=== PATIENT | female | born 1990 | race Caucasian/White ===

== ENCOUNTER 2016-12-02 12:04 | Emergency (ER) | payer OTHER ==
[~2016-12-02] VITALS: Ht 162.6 cm; Wt 68.0 kg
[~2016-12-02 12:04] MED LIST: NAPROSYN500 MG PO; NOHOMEMEDICATIONS; NORCO 5-325 TA1 EACH PO; NORFLEX100 MG PO; QUINU10 PD
[2016-12-02 12:12] VITALS: BP 142/78
[2016-12-02] MEDS ORDERED: NAPROSYN500 MG PO (13:20)
[2016-12-02] MEDS ORDERED: HYDROCODONE-AP1 EAC6 PO (13:20)
== END 2016-12-02 13:23 | disposition home or self-care (01) ==
LOC: ER 12:04
DX: K08.89 Other specified disorders of teeth and supporting structures (principal); I10 Essential (primary) hypertension

== ENCOUNTER 2017-05-25 11:51 | Emergency (ER) | payer OTHER ==
[~2017-05-25] VITALS: Ht 162.6 cm; Wt 68.0 kg
[~2017-05-25 11:51] MED LIST changes: +FLEXERIL PO; +HYDROCODONE-AP1 EAC6 PO; +IBUPROFEN 800800 MG PO
[2017-05-25] MEDS ORDERED: HYDROCODONE-AP1 EAC6 PO (14:37)
[2017-05-25] MEDS ORDERED: PREDNISONE 20 M20 MG PO (14:41)
[2017-05-25] MEDS ORDERED: CYCLOBENZAPRINE5 MG PO (14:41)
[2017-05-25] MEDS ORDERED: MOBIC7.5 MG PO (14:41)
[2017-05-25 14:47] VITALS: BP 112/63
== END 2017-05-25 14:48 | disposition home or self-care (01) ==
LOC: ER 11:51
DX: M54.6 Pain in thoracic spine (principal); M54.5 Low back pain; I10 Essential (primary) hypertension; W11.XXXA Fall on and from ladder, initial encounter; Y93.89 Activity, other specified; Y92.89 Other specified places as the place of occurrence of the external cause; Y99.8 Other external cause status

== ENCOUNTER 2017-09-28 05:17 | Emergency (ER) | payer OTHER ==
[~2017-09-28] VITALS: Ht 162.6 cm; Wt 76.2 kg
[~2017-09-28 05:17] MED LIST changes: +CYCLOBENZAPRINE5 MG PO; +MOBIC7.5 MG PO; +PREDNISONE 20 M20 MG PO
[2017-09-28] MEDS ORDERED: OSELB75 PO (05:59)
[2017-09-28] MEDS ORDERED: NORCO 5-325 TA1 EACH PO (05:59)
== END 2017-09-28 06:22 | disposition home or self-care (01) ==
LOC: ER 05:17
DX: J11.1 Influenza due to unidentified influenza virus with other respiratory manifestations (principal); K03.81 Cracked tooth; I10 Essential (primary) hypertension

== ENCOUNTER 2020-05-26 01:35 | Emergency (ER) | payer OTHER ==
[~2020-05-26] VITALS: Ht 162.6 cm; Wt 90.7 kg
[~2020-05-26 01:35] MED LIST changes: +OSELB75 PO
[2020-05-26 04:03] VITALS: BP 00/00
== END 2020-05-26 03:58 | disposition home or self-care (01) ==
LOC: ER 01:35
DX: M79.672 Pain in left foot (principal); R22.41 Localized swelling, mass and lump, right lower limb; I10 Essential (primary) hypertension; Z98.890 Other specified postprocedural states; W11.XXXA Fall on and from ladder, initial encounter; Y93.89 Activity, other specified; Y92.89 Other specified places as the place of occurrence of the external cause; Y99.8 Other external cause status

== ENCOUNTER 2021-06-25 22:26 | Emergency (ER) | payer OTHER ==
[~2021-06-25] VITALS: Ht 162.6 cm; Wt 93.0 kg
[2021-06-25 23:23] VITALS: BP 175/115
== END 2021-06-25 23:30 | disposition home or self-care (01) ==
LOC: ER 22:26
DX: S61.210A Laceration without foreign body of right index finger without damage to nail, initial encounter (principal); I10 Essential (primary) hypertension; Z98.890 Other specified postprocedural states; W26.0XXA Contact with knife, initial encounter; Y93.89 Activity, other specified; Y92.89 Other specified places as the place of occurrence of the external cause; Y99.8 Other external cause status